=== PATIENT | female | born 1960 | race Hispanic/Latino ===

== ENCOUNTER 2018-02-10 22:18 | Emergency (ER) | payer SELFPAY ==
[2018-02-10 22:29] VITALS: RESP 18; TEMP 97.6
--- NOTE | 2018-02-10 22:59 | ED PDOC ---
Arrival/HPI - General Chief Complaint: Alcohol Ingestion Time Seen by Provider: 02/10/18 22:20 Historian: Patient - History of Present Illness Narrative History of Present Illness (Text): 02/10/18 22:56 A 58 year old female, with no known past medical history, is brought into the emergency department via EMS for alcohol intoxication. The patient was found walking in the street. Patient states that she want to "go home". The patient denies fevers, chills, headache, dizziness, chest pain, shortness of breath, dyspnea on exertion, cough, abdominal pain, nausea, vomiting, diarrhea, back pain, neck pain, urinary/bowel changes, or any other somatic complaint. Time/Duration: Prior to Arrival Symptom Onset: Sudden Symptom Course: Unchanged Activities at Onset: Rest, Light Context: Home Past Medical History - Provider Review Nursing Documentation Reviewed: Yes - Psychiatric Hx Substance Use: No (unknown) - Anesthesia Hx Anesthesia: (unknown) Family/Social History - Physician Review Nursing Documentation Reviewed: Yes Family/Social History: No Known Family HX Smoking Status: Unknown If Ever Smoked Hx Alcohol Use: Yes Hx Substance Use: No (unknown) Allergies/Home Meds Allergies/Adverse Reactions: Allergies Unobtainable Allergy (Verified 02/10/18 22:36) Review of Systems - Physician Review All systems were reviewed & negative as marked: Yes - Review of Systems Constitutional: absent: Fevers, Night Sweats Respiratory: absent: SOB, Cough Cardiovascular: absent: Chest Pain Gastrointestinal: absent: Abdominal Pain, Diarrhea, Nausea, Vomiting Musculoskeletal: absent: Back Pain, Neck Pain Neurological: absent: Headache, Dizziness Physical Exam Vital Signs Reviewed: Yes Vital Signs Temp Pulse Resp BP Pulse Ox 02/11/18 00:19 95 H 18 138/82 100 02/10/18 22:28 97.6 F 100 H 18 145/77 95 Temperature: Afebrile Blood Pressure: Normal Pulse: Tachycardic Respiratory Rate: Normal Appearance: Positive for: Well-Appearing, Non-Toxic, Comfortable Pain Distress: None Mental Status: Positive for: Alert and Oriented X 3 Finger Stick Blood Glucose: 103 - Systems Exam Head: Present: Atraumatic, Normocephalic Pupils: Present: PERRL Extroacular Muscles: Present: EOMI Conjunctiva: Present: Normal Mouth: Present: Moist Mucous Membranes Neck: Present: Normal Range of Motion Respiratory/Chest: Present: Clear to Auscultation, Good Air Exchange. No: Respiratory Distress, Accessory Muscle Use Cardiovascular: Present: Regular Rate and Rhythm, Normal S1, S2. No: Murmurs Abdomen: No: Tenderness, Distention, Peritoneal Signs Back: Present: Normal Inspection Upper Extremity: Present: Other (Small area of ecchymosis to her left hand. ) Lower Extremity: Present: Normal Inspection. No: Edema Neurological: Present: GCS=15, CN II-XII Intact, Speech Normal Skin: Present: Warm, Dry, Normal Color. No: Rashes Psychiatric: Present: Alert, Oriented x 3, Normal Insight, Normal Concentration Medical Decision Making ED Course and Treatment: 02/10/18 22:58 Impression: A 58 year old female is brought into the emergency department via EMS for alcohol intoxication. Plan: -- Left Hand X-Ray -- Urinalysis -- Labs -- Reassess and disposition Progress Notes: 02/10/18 23:53: Patient's white blood count of 2 is at baseline. 02/11/18 00:10: On reevaluation, the patient is alert and oriented X3. The patient is ambulatory without tremors with steady gait. The patient is asking to be discharged. Discussed with paver, and the patient notes that she has a maldonado to her house and wants to go home. The patient refused any further imaging. 02/11/18 00:46: Patient's real name is under this . Registration is currently having difficulty changing the patient's name on this chart. - Lab Interpretations Lab Results: 02/10/18 22:55 02/10/18 22:55 Lab Results 02/10/18 22:55: Alcohol, Quantitative 89 H 02/10/18 22:55: Salicylates < 1 L, Acetaminophen < 10.0 L 02/10/18 22:55: WBC 2.0 L*, RBC 4.51, Hgb 13.9, Hct 40.0, MCV 88.7, MCH 30.8, MCHC 34.8, RDW 16.7 H, Plt Count 110 L, MPV 10.0, Gran % 45.7 L, Lymph % (Auto) 39.0 H, Morrison % (Auto) 13.8 H, Eos % (Auto) 1.0 L, Baso % (Auto) 0.5, Gran # 0.89 L, Lymph # (Auto) 0.8 L, Morrison # (Auto) 0.3, Eos # (Auto) 0.0, Baso # (Auto ) 0.01 02/10/18 22:55: Sodium 146, Potassium 3.5 L, Chloride 103, Carbon Dioxide 25, Anion Gap 21 H, BUN 15, Creatinine 0.7, Est GFR ( Amer) > 60, Est GFR ( Non-Af Amer) > 60, Random Glucose 111 H, Calcium 9.6, Total Bilirubin 0.8, AST 425 H, ALT 297 H, Alkaline Phosphatase 118, Lactate Dehydrogenase 849 H, Total Creatine Kinase 341 H, CK-MB (CK-2) 2.2, CK-MB (CK-2) % Cancelled, Troponin I < 0.01, Total Protein 7.8, Albumin 4.6, Globulin 3.2, Albumin/Globulin Ratio 1.5 02/10/18 22:44: POC Glucose (mg/dL) 103 I have reviewed the lab results: Yes - Scribe Statement The provider has reviewed the documentation as recorded by the Scribe Ramona Phoenix Provider Scribe Attestation: All medical record entries made by the Scribe were at my direction and personally dictated by me. I have reviewed the chart and agree that the record accurately reflects my personal performance of the history, physical exam, medical decision making, and the department course for this patient. I have also personally directed, reviewed, and agree with the discharge instructions and disposition. Disposition/Present on Arrival - Present on Arrival Any Indicators Present on Arrival: No History of DVT/PE: No History of Uncontrolled Diabetes: No Urinary Catheter: No (unknown) History of Decub. Ulcer: No (unknown) History Surgical Site Infection Following: None - Disposition Have Diagnosis and Disposition been Completed?: Yes Diagnosis: Alcohol abuse Disposition: HOME/ ROUTINE Disposition Time: 12:00 Condition: STABLE Discharge Instructions (ExitCare): Alcohol Abuse and Alcoholism (DC) Additional Instructions: return to er with worsening symptoms or concerns. Referrals: Alcoholics Anonymous [Outside] - Follow up with primary [facility] [Outside] - [facility] with [facility] [Outside] - Follow up with primary [facility] [Outside] - Follow up with primary PCP,NO [Primary Care Provider] - Follow up with primary Forms: [facility] ([place])
[2018-02-10 23:41] LABS: BASO # 0.01 K/mm3 (0.0-2.0); BASO % 0.5 % (0.0-3.0); GRAN # 0.89 (1.4-6.5); GRAN % 45.7 % (50.0-68.0); HEMOGLOBIN 13.9 g/dL (12.0-16.0); LYMPH # 0.8 (1.2-3.4); MEAN CELL VOLUME 88.7 fl (80.0-105.0); MEAN CORPUSCULAR HEMOGLOBIN 30.8 pg (25.0-35.0); MEAN CORPUSCULAR HGB CONC 34.8 g/dl (31.0-37.0); MONO # 0.3 (0.1-0.6); MONO % 13.8 % (1.0-6.0); RBC 4.51 10^6/uL (3.5-6.1); RED CELL DISTRIBUTION WIDTH 16.7 % (11.5-14.5)
[2018-02-10 23:42] LABS: ALB/GLOB RATIO 1.5 (1.1-1.8); ALBUMIN 4.6 g/dL (3.0-4.8); ALT/SGPT 297 U/L (7-56); AST/SGOT 425 U/L (14-36); BLOOD UREA NITROGEN 15 mg/dL (7-21); CALCIUM 9.6 mg/dL (8.4-10.5); GFR AFRICAN-AMERICAN > 60; GFR NON-AFRICAN AMERICAN > 60
[2018-02-10 23:43] LABS: ACETAMINOPHEN < 10.0 ug/ml (10.0-20.0); SALICYLATE < 1 mg/dL (2.0-20.0)
[2018-02-10 23:53] LABS: TROPONIN I < 0.01 ng/mL
[2018-02-11] LABS: CK-MB 2.2 ng/mL (0.0-3.6)
[2018-02-11 00:55] VITALS: BP 138/82; PULSE 95; O2SAT 100
== END 2018-02-11 01:05 | disposition home or self-care (01) ==
LOC: ED 22:18
DX: F10.10 Alcohol abuse, uncomplicated (principal); Y90.4 Blood alcohol level of 80-99 mg/100 ml
CPT/HCPCS: 80053; 82550; 82553; 82948; 83615; 84484; 85025; 99283; G0480